=== PATIENT | female | born 1990 | race Caucasian/White ===

== ENCOUNTER 2019-02-02 13:51 | Inpatient (IN) | payer BC ==
[~2019-02-02] VITALS: Ht 185.4 cm; Wt 89.5 kg
[2019-02-06] VITALS (7 sets, daily range): BP systolic 104–117; BP diastolic 64–70; PULSE 57–65; TEMP 98.1–98.6
[2019-02-06] MEDS ORDERED: INDERAL LA 60MG60 MG PO (08:35)
[2019-02-06] MEDS ORDERED: MULTAQ400 MG PO (08:36)
[2019-02-06] MEDS ORDERED: ASPIRIN 81M81 MG/TA2 PO (08:36)
[2019-02-06 09:48] LABS: BASO % 0.7 % (0.0-2.0); EOS # 0.1 (0.0-0.7); EOS % 1.8 % (0-4.0); GRAN # 2.4 (1.4-6.5); GRAN % 53.5 % (42.2-75.2); HEMATOCRIT 38.1 % (37.0-47.0); HEMOGLOBIN 12.9 g/dl (12.5-16.0); LYMPH # 1.5 (1.2-3.4); LYMPH % 33.2 % (20.0-51.0); MEAN CELL VOLUME 93 fl (80.0-100.0); MEAN CORPUSCULAR HEMOGLOBIN 32 pg (27.0-31.0); MEAN CORPUSCULAR HGB CONC 34 g/dl (33.0-37.0); MEAN PLATELET VOLUME 10.3 fl (7.4-10.4); MONO # 0.5 (0.1-0.6); MONO % 10.6 % (1.7-9.3); PLATELET COUNT 252 K/mm3 (130-400); RED BLOOD COUNT 4.08 M/mm3 (4.10-5.30); REDCELL DISTRIBUTION WIDTH-CV 12.7 % (11.5-14.5)
[2019-02-06 09:51] LABS: ALBUMIN 4.1 gm/dL (3.5-5.0); BILIRUBIN,TOTAL 0.7 mg/dL (0.0-1.0); CALCIUM 9.2 mg/dL (8.4-10.2); CREATININE, serum 0.83 (0.52-1.25); POTASSIUM 4.9 mmol/L (3.4-5.0); TOTAL PROTEIN 7.2 gm/dL (6.4-8.2)
[2019-02-06 09:55] LABS: INR 1.1 (0.8-3.0); PROTHROMBIN TIME 13.4 SECONDS (9.7-12.8)
--- NOTE | 2019-02-06 10:57 | NUR ---
Pt admitted to unit for Sotalol initiation and loop recorder placement. Pt alert and oriented. Pt EKG completed and then first dose Sotalol given. Pt IV started in left AC and flushed without complication. Pt oriented to room and has call light in reach. Pt denies pain or SOB. Pt in NSR at this time.
--- NOTE | 2019-02-06 12:28 | NUR ---
Pt loop recorder incision site CDI with gauze dressing covering incision. Pt denies pain or SOB. Pt has call light in reach and ordering lunch now.
--- NOTE | 2019-02-06 18:00 | NUR ---
Pt alert and orieneted and no pain or SOB reported. Pt has call light in reach. Pt independent in room. Pt loop recorder incision site CDI. Pt remains on telemetry.
--- NOTE | 2019-02-06 22:00 | NUR ---
Resting in bed. Assessment complete. Heart sounds normal, regular. Lungs clear. Bowels active x4. Pulses strong throughout. INT to left AC without complications. Loop recorder site CDI. Provided PRN tylenol for 4/10 aching pain. Denies other needs at this time. Call light in reach.
[2019-02-07] VITALS (7 sets, daily range): BP systolic 98–115; BP diastolic 59–77; PULSE 58–145; TEMP 97.9–99.1
--- NOTE | 2019-02-07 00:07 | NUR ---
Telemetry called stating pulse 36. Woke patient up, patient states she is feeling okay. VS recently taken. Pulse now 56. Will monitor.
--- NOTE | 2019-02-07 00:17 | NUR ---
Telemetry called stating patient in Afib/aflutter in 130s from 10 until 13, patient converted back to normal sinus in 50s currently. Patient resting in bed. Will monitor.
--- NOTE | 2019-02-07 04:55 | NUR ---
Patient resting in bed. Pulse 36. No symptoms. Up to 57 after awakening. Denies needs. Call light in reach.
--- NOTE | 2019-02-07 06:00 | NUR ---
Patient had episodes of bradycardia with conversion in and out of afib/aflutter without intervention. No symptoms during. Loop recorder site without complications. Resting in bed this AM.
[2019-02-07 06:06] LABS: BASO % 0.6 % (0.0-2.0); EOS # 0.1 (0.0-0.7); EOS % 1.5 % (0-4.0); GRAN # 2.3 (1.4-6.5); GRAN % 49.3 % (42.2-75.2); HEMATOCRIT 37.9 % (37.0-47.0); HEMOGLOBIN 12.9 g/dl (12.5-16.0); LYMPH # 1.8 (1.2-3.4); MEAN CELL VOLUME 92 fl (80.0-100.0); MEAN CORPUSCULAR HEMOGLOBIN 32 pg (27.0-31.0); MEAN CORPUSCULAR HGB CONC 34 g/dl (33.0-37.0); MEAN PLATELET VOLUME 10.3 fl (7.4-10.4); MONO # 0.4 (0.1-0.6); MONO % 9.4 % (1.7-9.3); PLATELET COUNT 233 K/mm3 (130-400); REDCELL DISTRIBUTION WIDTH-CV 12.6 % (11.5-14.5)
--- NOTE | 2019-02-07 06:16 | NUR ---
Telemetry called at 0607. Patient in afib. 90s to 110s. VS taken and stable. Patient reports "feeling heart beating faster." Will closely monitor. Parameters for telemetry are currently above 120 and below 40.
[2019-02-07 06:23] LABS: CALCIUM 9.3 mg/dL (8.4-10.2); CREATININE, serum 0.83 (0.52-1.25); MAGNESIUM 1.7 mg/dL (1.6-2.3); POTASSIUM 3.9 mmol/L (3.4-5.0)
--- NOTE | 2019-02-07 07:22 | NUR ---
Report given to PABLO Porras
--- NOTE | 2019-02-07 08:00 | NUR ---
Pt resting in bed, no C/O pain at this time, shift assessments complete, left Pt call light in reach, bed in lowest position
--- NOTE | 2019-02-07 08:00 | NUR ---
Pt resting in bed, C/O pain and nausea this morning, medications given for relief, shift assessments complete, left Pt call light in reach, bed in lowest position.
--- NOTE | 2019-02-07 08:47 | NUR ---
SW met with patient to discuss discharge planning. Patient lives independently at home and plans to return there upon discharge. Patient's PCP is Dr Irais Peraza and she obtains prescriptions from [facility]. Patient does not use any DME or home health services. Patient does not have a DPOA and is not interested in obtaining one at this time. SW does not anticipate any discharge needs.
--- NOTE | 2019-02-07 11:42 | NUR ---
Initial visit; Patient thanked Transfer Specialist for wishing her well and offering God's blessings.
--- NOTE | 2019-02-07 19:26 | NUR ---
Pt rested and was independent in the room, Pt had several episodes of tachycardia during the shift and the physician changed the parameters, currently as of this note the upper limit is 175. Pt had no C/O pain during the shift and VS have remained stable.
--- NOTE | 2019-02-07 20:41 | NUR ---
Resting in bed. Assessment complete. Lungs clear. Heart sounds tachycardic and irregular. Patient denies any symptoms. Bowels active x4. Pulses strong throughout. No edema. Incision to left chest covered with gauze and CDI. Reports 4/10 pain, denies need for tylenol at this time. Denies other needs. Call light in reach.
--- NOTE | 2019-02-07 22:38 | NUR ---
Resting in bed. Denies needs.
[2019-02-08 03:12] VITALS: BP 105/66; PULSE 91; TEMP 98.2
--- NOTE | 2019-02-08 04:17 | NUR ---
Resting in bed. Call light in reach.
[2019-02-08 06:23] LABS: BASO # 0.1 (0.0-0.2); BASO % 0.8 % (0.0-2.0); EOS # 0.1 (0.0-0.7); EOS % 1.3 % (0-4.0); GRAN % 49.2 % (42.2-75.2); HEMATOCRIT 43.5 % (37.0-47.0); LYMPH # 2.4 (1.2-3.4); LYMPH % 39.7 % (20.0-51.0); MEAN CELL VOLUME 91 fl (80.0-100.0); MEAN CORPUSCULAR HEMOGLOBIN 31 pg (27.0-31.0); MEAN CORPUSCULAR HGB CONC 35 g/dl (33.0-37.0); MEAN PLATELET VOLUME 10.7 fl (7.4-10.4); MONO # 0.5 (0.1-0.6); MONO % 8.7 % (1.7-9.3); PLATELET COUNT 305 K/mm3 (130-400); RED BLOOD COUNT 4.77 M/mm3 (4.10-5.30); REDCELL DISTRIBUTION WIDTH-CV 12.7 % (11.5-14.5)
[2019-02-08 06:54] LABS: CALCIUM 9.6 mg/dL (8.4-10.2); CREATININE, serum 0.88 (0.52-1.25); MAGNESIUM 1.7 mg/dL (1.6-2.3)
--- NOTE | 2019-02-08 07:03 | NUR ---
Report given to PABLO Triana. Patient had uneventful night. Call light in reach.
[2019-02-08 07:28] VITALS: BP 95/73; PULSE 95; TEMP 97.9
--- NOTE | 2019-02-08 08:30 | NUR ---
Patient sitting in chair upon entry. Assessment complete. Lung sounds clear, heart RRR, bowel sounds present. Patient denies chest pain, palpitations, dizziness, N/V, SOB. Patient states she was symptomatic earlier for a brief moment. Pusles strong bilaterally. Denies other needs. Per patient, feeling better". Loop recorder site is CDI, gauze dressing intact. LAC INT IV, flushes well. Denies other needs at this time. Call light within reach.
--- NOTE | 2019-02-08 09:52 | NUR ---
Carrie from tele called, patient is back in NSR.
[2019-02-08] MEDS ORDERED: CEPHALEXIN500 M1 PO (11:33)
[2019-02-08] MEDS ORDERED: BETAPACE 80MG80 MG PO (11:34)
[2019-02-08 12:01] VITALS: BP 105/68; PULSE 65; TEMP 98.4
--- NOTE | 2019-02-08 12:57 | NUR ---
Patient discharged. LAC INT IV discontinued, catheter tip intact. No complications. Discharge instructions discussed, incision care reviewed and discussed. patient verbalizes understanding. All questions answered. No other needs. This nurse escorted patient out, patient ambulatory.
== END 2019-02-08 12:59 | disposition home or self-care (01) | DRG 262 ==
LOC: MEDICAL 02-06 08:17
PROVIDERS: ADMIT Internal Medicine Cardiovascular Disease
PROC: 0JH632Z Insertion of Monitoring Device into Chest Subcutaneous Tissue and Fascia, Percutaneous Approach (ICD-10-PCS; principal; 2019-02-06)
DX: I48.0 Paroxysmal atrial fibrillation (principal); I49.1 Atrial premature depolarization; Z79.82 Long term (current) use of aspirin
CPT/HCPCS: C1764